=== PATIENT | female | born 1975 | race African-American/Black ===

== ENCOUNTER 2017-07-23 16:39 | Emergency (ER) | payer OTHER ==
[2017-07-23 16:44] VITALS: TEMP 98.3; BMI 24.3
--- NOTE | 2017-07-23 17:43 | PDOC ---
History of Present Illness - General History Source: Patient Exam Limitations: No Limitations - History of Present Illness Initial Comments: 07/23/17 18:49 The patient is a 42 year old female, with no significant past medical history, who presents to the emergency department with left flank pain for the past day. She reports that her pain ranges from mild to moderate, with radiation to the left lower quadrant. She notes that certain movements exacerbates her pain. She also reports hip and lumbar pain associated with her chief complaint. She states that she has been experiencing some dysuria as well. She reports that she thought she had a UTI. The patient denies chest pain, shortness of breath, headache and dizziness. Denies fever, chills, nausea, vomit, diarrhea and constipation. Denies frequency , urgency and hematuria. Allergies: None Past surgical history: None reported Social history: Alcohol use. No tobacco or drug use reported <Yeison Clakr - Last Filed: 07/23/17 18:49> <Zenaida Sharp - Last Filed: 07/23/17 18:58> - General Chief Complaint: Pain Stated Complaint: ABD PAIN Time Seen by Provider: 07/23/17 17:09 Past History <Yeison Clark - Last Filed: 07/23/17 18:49> - Past Medical History Asthma: No Cancer: No Cardiac Disorders: No COPD: No Diabetes: No HTN: No Seizures: No Thyroid Disease: No - Suicide/Smoking/Psychosocial Hx Smoking History: Never smoked Have you smoked in the past 12 months: No Hx Alcohol Use: Yes (OCCASSIONALLY.) Drug/Substance Use Hx: No Substance Use Type: Alcohol Hx Substance Use Treatment: No <Zenaida Sharp - Last Filed: 07/23/17 18:58> - Past Medical History Allergies/Adverse Reactions: Allergies Allergy/AdvReac Type Severity Reaction Status Date / Time No Known Allergies Allergy Verified 07/23/17 16:41 Home Medications: Ambulatory Orders Sulfamethoxazole/Trimethoprim [Bactrim Ds -] 1 tab PO BID #14 tablet 07/23/17 Review of Systems - Review of Systems Able to Perform ROS?: Yes Comments:: 07/23/17 18:50 GENERAL/CONSTITUTIONAL: No fever or chills. No weakness. HEAD, EYES, EARS, NOSE AND THROAT: No change in vision. No ear pain or discharge. No sore throat.- CARDIOVASCULAR: No chest pain or shortness of breath RESPIRATORY: No cough, wheezing, or hemoptysis. GASTROINTESTINAL: No nausea, vomiting, diarrhea or constipation. GENITOURINARY: (+) left flank pain, dysuria. No frequency, or change in urination. MUSCULOSKELETAL: No joint or muscle swelling or pain. No neck or back pain. SKIN: No rash NEUROLOGIC: No headache, vertigo, loss of consciousness, or change in strength/ sensation. ENDOCRINE: No increased thirst. No abnormal weight change HEMATOLOGIC/LYMPHATIC: No anemia, easy bleeding, or history of blood clots. ALLERGIC/IMMUNOLOGIC: No hives or skin allergy. <Yeison Clark - Last Filed: 07/23/17 18:49> *Physical Exam - Vital Signs Last Vital Signs Temp Pulse Resp BP Pulse Ox 98.3 F 84 18 122/72 99 07/23/17 16:41 07/23/17 16:41 07/23/17 16:41 07/23/17 16:41 07/23/17 16:41 - Physical Exam Comments: 07/23/17 18:50 GENERAL: Awake, alert, and fully oriented, in no acute distress HEAD: No signs of trauma, normocephalic, atraumatic EYES: PERRLA, EOMI, sclera anicteric, conjunctiva clear ENT: Auricles normal inspection, hearing grossly normal, nares patent, oropharynx clear without exudates. Moist mucosa NECK: Normal ROM, supple, no lymphadenopathy, JVD, or masses LUNGS: No distress, speaks full sentences, clear to auscultation bilaterally HEART: Regular rate and rhythm, normal S1 and S2, no murmurs, rubs or gallops, peripheral pulses normal and equal bilaterally. ABDOMEN: Soft, nontender, normoactive bowel sounds. No guarding, no rebound. No masses EXTREMITIES : Normal inspection, Normal range of motion, no edema. No clubbing or cyanosis. NEUROLOGICAL: Cranial nerves II through XII grossly intact. Normal speech, normal gait, no focal sensorimotor deficits SKIN: Warm, Dry, normal turgor, no rashes or lesions noted. <Yeison Clark - Last Filed: 07/23/17 18:49> - Vital Signs Last Vital Signs Temp Pulse Resp BP Pulse Ox 98.3 F 84 18 122/72 99 07/23/17 16:41 07/23/17 16:41 07/23/17 16:41 07/23/17 16:41 07/23/17 16:41 <Zenaida Sharp - Last Filed: 07/23/17 18:58> ED Treatment Course - LABORATORY CBC & Chemistry Diagram: 07/23/17 18:00 07/23/17 18:00 - ADDITIONAL ORDERS Additional order review: Laboratory Results 07/23/17 07/23/17 18:10 18:10 Urine Color Yellow Urine Appearance Slcloudy Urine pH 7.0 Ur Specific [place] 1.023 Urine Protein Negative Urine Glucose (UA) Negative Urine Ketones Negative Urine Blood Negative Urine Nitrite Positive Urine Bilirubin Negative Urine Urobilinogen Negative Urine WBC (Auto) 3 Urine RBC (Auto) 1 Ur Epithelial Cells Rare Urine Bacteria Rare Urine Mucus Rare Urine HCG, Qual Negative 07/23/17 18:00 RBC 4.20 MCV 86.2 MCHC 32.5 RDW 14.2 D MPV 9.1 D Neutrophils % 53.8 D Lymphocytes % 31.7 D Monocytes % 9.3 Eosinophils % 4.7 H D Basophils % 0.5 <Yeison Clark - Last Filed: 07/23/17 18:49> - LABORATORY CBC & Chemistry Diagram: 07/23/17 18:00 07/23/17 18:00 <Zenaida Sharp - Last Filed: 07/23/17 18:58> *DC/Admit/Observation/Transfer - Attestations Scribe Attestion: 07/23/17 18:50 Documentation prepared by Yeison Clark, acting as biomedical engineering internship for Zenaida Sharp MD <Yeison Clark - Last Filed: 07/23/17 18:49> <Zenaida Sharp - Last Filed: 07/23/17 18:58> Diagnosis at time of Disposition: Flank pain UTI (urinary tract infection) Qualifiers: Urinary tract infection type: acute cystitis Hematuria presence: without hematuria Qualified Code(s): N30.00 - Acute cystitis without hematuria - Discharge Dispostion Disposition: HOME Condition at time of disposition: Stable - Prescriptions Prescriptions: Sulfamethoxazole/Trimethoprim [Bactrim Ds -] 1 tab PO BID #14 tablet - Referrals Referrals: Riley Johnson MD [Primary Care Provider] - - Patient Instructions Printed Discharge Instructions: DI for Urinary Tract Infection (UTI) Additional Instructions: 1-please pick up and delivery driver your medications for your urinary tract infection 2- take tylenol or motrin if needed for pain 3-return for any worsening symptoms - Post Discharge Activity
[2017-07-23 18:18] LABS: BASOPHIL 0.5 % (0-2.0); EOSINOPHIL 4.7 % (0-4.5); MCHC 32.5 g/dl (32.0-36.0); MEAN CELL VOLUME 86.2 fl (80-96); MEAN PLT VOLUME 9.1 fl (7.5-11.1); NEUTROPHILS 53.8 % (42.8-82.8); PLATELET COUNT 243 K/MM3 (134-434); RDW 14.2 % (11.6-15.6); WHITE BLOOD COUNT 4.9 K/mm3 (4.0-10.0)
[2017-07-23 18:21] LABS: URINE APPEARANCE SLCLOUDY; URINE BILIRUBIN NEGATIVE (NEGATIVE); URINE BLOOD NEGATIVE (NEGATIVE); URINE COLOR YELLOW; URINE GLUCOSE (UA) NEGATIVE (NEGATIVE); URINE KETONE NEGATIVE (NEGATIVE); URINE LEUK ESTERASE NEGATIVE (NEGATIVE); URINE NITRITE POSITIVE (NEGATIVE); URINE PROTEIN NEGATIVE (NEGATIVE); URINE UROBILINOGEN NEGATIVE mg/dL (0.2-1.0)
[2017-07-23 18:22] LABS: URINE BACTERIA RARE /hpf (NONE SEEN); URINE MUCUS RARE; URINE RBC 1 /hpf (0-3); URINE WBC 3 /hpf (3-5)
[2017-07-23 18:43] LABS: ALBUMIN 3.9 g/dl (3.4-5.0); ANION GAP 8 (8-16); CALCIUM 9.1 mg/dL (8.5-10.1); CO2 28 mmol/L (21-32); CREATININE 0.7 mg/dL (0.55-1.02); GLUCOSE,RANDOM 88 mg/dL (74-106); SGPT/ALT 17 U/L (12-78)
[2017-07-23 18:55] LABS: ALK PHOS 53 U/L (45-117); BILIRUBIN,TOTAL 0.3 mg/dL (0.2-1.0); SGOT/AST 11 U/L (15-37); TOT PROT 7.2 g/dl (6.4-8.2)
[2017-07-23 19:11] VITALS: BP 118/65; PULSE 80
[2017-07-24 13:41] LABS: URINE LEUK ESTERASE Negative (NEGATIVE)
== END 2017-07-23 19:11 | disposition home or self-care (01) ==
LOC: SUPCPDRO 16:39 → JER 16:39
DX: N30.00 Acute cystitis without hematuria (principal)
CPT/HCPCS: 36415; 80053; 81003; 81015; 83690; 84703; 85025; 99284-25

== ENCOUNTER 2023-09-14 15:24 | Emergency (ER) | payer OTHER ==
[2023-09-14 15:46] VITALS: BP 149/83; PULSE 85; RESP 16; TEMP 98.4; BMI 27.3
[2023-09-14 18:14] LABS: HEMATOCRIT 29.8 % (32.4-45.2); HEMOGLOBIN 9.3 G/dL (10.7-15.3); MCH 24.2 pg (25.7-33.7); MCHC 31.3 g/dl (32.0-36.0); MEAN CELL VOLUME 77.1 fl (80-96); PLATELET COUNT 346.6 10^3/uL (134-434); RBC 3.86 10^6/uL (3.60-5.2); RDW 21.7 % (11.6-15.6); WHITE BLOOD COUNT 4.6 10^3/uL (4.0-10.8)
[2023-09-14 18:26] LABS: ALBUMIN 4.3 g/dl (3.4-5.0); BILIRUBIN,TOTAL 0.5 mg/dl (0.2-1); CALCIUM 9.4 mg/dl (8.5-10.1); CREATININE 0.6 mg/dl (0.6-1.3); POTASSIUM 3.7 mmol/L (3.5-5.1); TOT PROT 7.1 g/dl (6.4-8.2)
[2023-09-14 18:32] LABS: PLATELET ESTIMATE ADEQUATE
[2023-09-14 20:06] LABS: N-TERMINAL BNP 77.4 pg/ml (5-125)
== END 2023-09-14 19:01 | disposition home or self-care (01) ==
LOC: FER 15:24
DX: D64.9 Anemia, unspecified (principal); I87.8 Other specified disorders of veins; M79.89 Other specified soft tissue disorders
CPT/HCPCS: 36415; 71046-TC-FY; 80053; 83880; 84484; 85027; 93970-TC; 99285-25

== ENCOUNTER 2024-08-11 17:30 | Emergency (ER) | payer OTHER ==
[2024-08-11 17:36] VITALS: BP 121/80; PULSE 60; RESP 18; TEMP 98.4; BMI 31.9
[2024-08-11 18:48] LABS: HEMOGLOBIN 11.2 GM/dL (10.7-15.3); MCH 26.4 pg (25.7-33.7); MCHC 31.9 g/dl (32.0-36.0); MEAN CELL VOLUME 82.6 fl (80-96); MEAN PLT VOLUME 8.2 fl (7.5-11.1); PLATELET COUNT 287 10^3/uL (134-434); RBC 4.23 M/mm3 (3.60-5.2); RDW 15.2 % (11.6-15.6); WHITE BLOOD COUNT 4.7 K/mm3 (4.0-10.0)
[2024-08-11 19:15] LABS: POTASSIUM 3.8 mmol/L (3.5-5.1)
[2024-08-11 19:16] LABS: CALCIUM 9.1 mg/dL (8.5-10.1)
[2024-08-11 19:17] LABS: ALBUMIN 3.7 g/dl (3.4-5.0); BLOOD UREA NITROGEN 6.8 mg/dL (7-18)
[2024-08-11 19:20] LABS: CREATININE 0.8 mg/dL (0.55-1.3)
[2024-08-11 19:22] LABS: BILIRUBIN,TOTAL 0.4 mg/dL (0.2-1); TOT PROT 7.2 g/dl (6.4-8.2)
[2024-08-11 19:25] LABS: EPI CELLS 19 /uL (0-25.1); HCG,QUALITATIVE URINE Negative; HYALINE CASTS 2 /uL (0-3.1); PH,URINE 5.5 (5.0-8.0); URINE APPEARANCE CLOUDY; URINE BACTERIA >9,000 /uL (0-1359); URINE BILIRUBIN NEGATIVE (NEGATIVE); URINE COLOR YELLOW; URINE GLUCOSE (UA) NEGATIVE (NEGATIVE); URINE KETONE NEGATIVE (NEGATIVE); URINE LEUK ESTERASE NEGATIVE (NEGATIVE); URINE NITRITE POSITIVE (NEGATIVE); URINE PROTEIN NEGATIVE (NEGATIVE); URINE RBC 13 /uL (0-23.9); URINE UROBILINOGEN 0.2 mg/dL (0.2-1.0)
[2024-08-11 19:40] LABS: URINE WBC 59 /uL (0-25.8)
[2024-08-11 20:03] LABS: HIV INTERPRETATION NEGATIVE (NEGATIVE)
[2024-08-11] MEDS ORDERED: CEFTRIAXONE 1 G/50 ML PREMIX 50 ML IVPB ONE (20:29)
[2024-08-11] MEDS ORDERED: KETOROLAC TROMETHAMINE 15 MG/ML VIAL ONE (20:29)
[2024-08-11] MEDS: KETOROLAC TROMETHAMINE 15 MG/ML VIAL IVPUSH ONE (20:35)
[2024-08-11] MEDS ORDERED: ACETAMINOPHEN INJECTION 100 ML ONE (22:33)
[2024-08-11] MEDS: ACETAMINOPHEN 1000 MG/100 ML BAG IVPB ONE (22:39)
[2024-08-11] MEDS ORDERED: MORPHINE SULFATE 2 MG/ML SYRINGE ONE (22:41)
[2024-08-11] MEDS: morphine CARPU-JECT 2 MG/1 ML DISP.SYRIN IVPUSH ONE (22:50)
== END 2024-08-12 00:55 | disposition home or self-care (01) ==
LOC: JER 17:30
PROC: 3E03329 Introduction of Other Anti-infective into Peripheral Vein, Percutaneous Approach (ICD-10-PCS; principal; 2024-08-11)
PROC: 3E0333Z Introduction of Anti-inflammatory into Peripheral Vein, Percutaneous Approach (ICD-10-PCS; 2024-08-11)
PROC: 3E033NZ Introduction of Analgesics, Hypnotics, Sedatives into Peripheral Vein, Percutaneous Approach (ICD-10-PCS; 2024-08-11)
DX: N39.0 Urinary tract infection, site not specified (principal); R10.9 Unspecified abdominal pain
CPT/HCPCS: 36415; 74177-TC; 80053; 81003; 84703; 85027; 86803; 87086; 87186; 87389; 99285-25; Q9967